=== PATIENT | male | born 1960 | race Caucasian/White ===

== ENCOUNTER 2016-12-07 14:07 | Emergency (ER) | payer MEDICARE, OTHER, MEDICAID ==
--- NOTE | 2016-12-07 14:53 | ER Document Report ---
ED Psych Disorder / Suicide - General Chief Complaint: Psych Problem Stated Complaint: PSYCH EVAL Time Seen by Provider: 12/07/16 14:27 Mode of Arrival: Medic Information source: Patient, Emergency Med Personnel Notes: This 56-year-old male patient was found walking in the [facility] and brought to the emergency room by EMS. He reported that he felt suicidal. His history is that he has been diagnosed schizophrenia since he was 16 years old, is not currently on medication. He normally takes Abilify, Remeron, Minipress, and does not know the doses. 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 He came to this area 3 days ago to meet with a girl he met on the internet who promised that she would never kick him out to the street. She kicked him out in the rain today. He states he is feeling very suicidal at this time. - Related Data Allergies/Adverse Reactions: No Known Allergies Allergy (Verified 12/07/16 14:21) Home Medications: Current Home Medications Benztropine Mesylate [Cogentin 1 mg Tablet] 2 tab PO BID 12/07/16 [History] Brimonidine Tartrate [Alphagan P] 1 drop OP Q8 12/07/16 [History] Cholecalciferol (Vitamin D3) [Vitamin D3] 1,000 unit PO DAILY 12/07/16 [History] Donepezil HCl [Aricept] 1 tab PO QHS 12/07/16 [History] Dorzolamide/Timolol/Pf [Cosopt Pf Eye Drops] 1 each OP TID 12/07/16 [History] Gabapentin 300 mg PO TID 12/07/16 [History] Latanoprost [Xalatan 0.005% Oph Soln 2.5 ml] 1 drop OP QHS 12/07/16 [History] Lisinopril [Prinivil 5 mg Tablet] 5 mg PO DAILY 12/07/16 [History] Metformin HCl [Glucophage] 500 mg PO BID 12/07/16 [History] Olanzapine [Zyprexa Zydis] 20 mg PO DAILY 12/07/16 [History] Sertraline HCl [Zoloft] 100 mg PO DAILY 12/07/16 [History] Tizanidine HCl [Zanaflex 4 Mg Tablet] 4 mg PO TID 12/07/16 [History] Trazodone HCl [Desyrel] 200 mg PO QHS 12/07/16 [History] Past Medical History - General Information source: Patient, Emergency Med Personnel - Social History Smoking Status: Current Every Day Smoker Cigarette use (# per day): Yes Chew tobacco use (# tins/day): No Smoking Education Provided: No Frequency of alcohol use: None Drug Abuse: None Occupation: Unemployed Lives with: Homeless Family History: Reviewed & Not Pertinent Patient has suicidal ideation: Yes Patient has homicidal ideation: No - Past Medical History Cardiac Medical History: Reports: Hx Hypertension Pulmonary Medical History: Reports: None EENT Medical History: Reports: None Neurological Medical History: Reports: None Endocrine Medical History: Reports: None Renal/ Medical History: Reports: None Malignancy Medical History: Reports None - Probably had a benign mass removed from his intracranial cavity by history. GI Medical History: Reports: None Musculoskeltal Medical History: Reports None Skin Medical History: Reports None Psychiatric Medical History: Reports: Hx Schizophrenia Past Surgical History: Reports: Hx Orthopedic Surgery - ORIF right forearm, Other - Brain surgery Review of Systems - Review of Systems Constitutional: No symptoms reported EENT: No symptoms reported Cardiovascular: No symptoms reported Respiratory: No symptoms reported Gastrointestinal: No symptoms reported Genitourinary: No symptoms reported Musculoskeletal: No symptoms reported Skin: No symptoms reported Neurological/Psychological: See HPI, Depression, Anxiety, Suicidal ideation Physical Exam - Vital signs Vitals: Temp Pulse Resp BP Pulse Ox 98.4 F 84 20 145/83 H 98 12/07/16 14:08 12/07/16 14:08 12/07/16 14:08 12/07/16 14:08 12/07/16 14:08 Interpretation: Normal - General General appearance: Alert, Anxious In distress: None Notes: Patient is standing in the room, he paces the floor using very short steps. - HEENT Head: Normocephalic, Atraumatic Eyes: Normal Pupils: PERRL Neck: Normal - Respiratory Respiratory status: No respiratory distress Breath sounds: Normal - Cardiovascular Rhythm: Regular Heart sounds: Normal auscultation Murmur: No - Abdominal Inspection: Normal Bowel sounds: Normal Tenderness: Nontender - Back Back: Normal - Extremities General upper extremity: Normal inspection General lower extremity: Normal inspection - Neurological Neuro grossly intact: Yes - Psychological Associated symptoms: Anxious, Restlessness - Skin Skin Temperature: Warm Skin Moisture: Dry Skin Color: Normal Course - Vital Signs Vital signs: Temp Pulse Resp BP Pulse Ox 98.4 F 84 20 145/83 H 98 12/07/16 14:08 12/07/16 14:08 12/07/16 14:08 12/07/16 14:08 12/07/16 14:08 - Laboratory Result Diagrams: 12/07/16 14:47 12/07/16 14:47 Laboratory results interpreted by me: 12/07/16 14:47 Glucose 134 H Salicylates < 1.0 L Acetaminophen < 10 L - EKG Interpretation by Nd EKG shows normal: Sinus rhythm, Finley, Intervals, QRS Complexes, ST-T Waves Rate: Normal - 58 Rhythm: NSR Discharge - Discharge Clinical Impression: Suicidal ideation, Homeless single person Schizophrenia Qualifiers: Schizophrenia type: unspecified Qualified Code(s): F20.9 - Schizophrenia, unspecified Condition: Stable Disposition: PSYCH HOSP/UNIT
[2016-12-07 15:07] LABS: ABSOLUTE BASOPHILS # (AUTO) 0.1 10^3/uL (0.0-0.2); ABSOLUTE EOSINOPHILS # (AUTO) 0.2 10^3/uL (0.0-0.6); ABSOLUTE LYMPHOCYTES (AUTO) 2.2 10^3/uL (0.5-4.7); ABSOLUTE MONOCYTES (AUTO) 0.8 10^3/uL (0.1-1.4); BASOPHILS % (AUTO) 0.7 % (0-2); EOSINOPHILS % (AUTO) 2.2 % (0-6); HEMATOCRIT 47.6 % (37.9-51.0); HGB HCT DIFFERENCE 0.4; LYMPHOCYTES % (AUTO) 20.8 % (13-45); MEAN CORPUSCULAR HEMOGLOBIN 31.4 pg (27.0-33.4); MEAN CORPUSCULAR HGB CONC 33.6 g/dL (32.0-36.0); MEAN CORPUSCULAR VOLUME 94 fl (80-97); MONOCYTES % (AUTO) 8.1 % (3-13); RED BLOOD COUNT 5.09 10^6/uL (4.35-5.55); RED CELL DISTRIBUTION WIDTH 13.1 % (11.5-14.0); SEGMENTED NEUTROPHILS % (AUTO) 68.2 % (42-78); WHITE BLOOD COUNT 10.3 10^3/uL (4.0-10.5)
[2016-12-07 15:31] LABS: ALANINE AMINOTRANSFERASE 43 U/L (21-72); ALBUMIN 3.9 g/dL (3.5-5.0); ALKALINE PHOSPHATASE 78 U/L (38-126); ANION GAP 11 (5-19); ASPARTATE AMINO TRANSFERASE 29 U/L (17-59); BILIRUBIN,DIRECT 0.3 mg/dL (0.0-0.4); BILIRUBIN,TOTAL 0.6 mg/dL (0.2-1.3); BLOOD UREA NITROGEN 8 mg/dL (7-20); CALCIUM 9.9 mg/dL (8.4-10.2); CARBON DIOXIDE 26 mmol/L (22-30); CHLORIDE 103 mmol/L (98-107); CREATININE RESULT 0.83 mg/dL (0.52-1.25); GLUCOSE 134 mg/dL (75-110); POTASSIUM 4.1 mmol/L (3.6-5.0); SODIUM 139.7 mmol/L (137-145)
[2016-12-07 15:32] LABS: ALCOHOL < 10 mg/dL (NONE DETECTED)
--- NOTE | 2016-12-07 16:20 | EKG REPORT ---
SEVERITY:- NORMAL ECG - SINUS RHYTHM : Confirmed by: Bee Gupta MD 07-Dec-2016 16:19:38
[2016-12-07 16:38] LABS: APPEARANCE,URINE CLEAR; BILIRUBIN,URINE NEGATIVE (NEGATIVE); GLUCOSE, URINE NEGATIVE (NEGATIVE); KETONES,URINE NEGATIVE (NEGATIVE); LEUKOCYTE ESTERASE,URINE NEGATIVE (NEGATIVE); NITRITE,URINE NEGATIVE (NEGATIVE); PROTEIN,URINE NEGATIVE (NEGATIVE); URINE SPECIFIC GRAVITY 1.002; UROBILINOGEN,URINE NEGATIVE mg/dL (<2.0)
[2016-12-07 16:57] LABS: URINE BARBITURATES SCREEN NEGATIVE; URINE METHADONE SCREEN NEGATIVE; URINE OPIATES LOW NEGATIVE; URINE PHENCYCLIDINE SCREEN NEGATIVE
[2016-12-07] MEDS: LEVETIRACETAM 500 MG TABLET PO SCH (22:05)
--- NOTE | 2016-12-08 07:13 | PSYCHOLOGICAL NOTE ---
Psych Note - Psych Note Psych Note: Ptt o ED via EMS with c/o suicidal ideation, found by EMS walking in rain on side of road. Pt reports he moved here 3 days ago from [place] to meet a girl he met karolyn, states she kicked him out in the rain today, pt tearful on arrival , states hx of schizophrenia and recent brain surgery. Patient disclosed that he had brain surgery 1 month ago in [facility] and should not even be out of bed. Patient states that he had a moved from his brain. Clinician notes patient does have scarring on the left side of his head. he continued disclosed that "everywhere I go they kicked me out." Scared. Patient continued disclosed that he has "nowhere to go and no reason to live." Patient states that he is not healthy. He continued disclosed that he used continued outpatient services however is new to the area. He continued disclosed that he is to take Abilify and Remeron. Patient again stated "no one wants to be around anymore." Patient repeated multiple times that he was scared. Patient identifies difficulty with falling asleep frequently. Patient is alert and orientated to person place time and circumstance. Mood is dysphoric with full affect. Patient endorses suicidal ideation denies homicidal ideation. Patient denies auditory visual hallucinations no delusions are noted patient is not demonstrating any behavior congruent to responding to internal stimuli. Thought process is disjointed. Conversational speech is halting and difficult to understand a patient's tearfulness. Eye contact was poor. Intellectual abilities appear to be low average range. Insight and concentration and attention judgment and impulse control. 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 Impression\\plan:Patient is recommended for mental health hold for overnight observation. It is unclear at this time the patient's history and diagnosis. Patient is able to disclose detailed information such as names and addresses however is fearful and demonstrating come confusion with orientation to timelines. Unable to obtain collaterals at this time; evaluation incomplete. Dr Estes was consulted on the care and management of this patient; attending physicain is in agreement with recommendations and disposition.
--- NOTE | 2016-12-08 09:05 | ER Document Report ---
Doctor's Note Notes: 12/08/16 09:18 As the rounding physician for our psychiatric patients, I have reviewed the chart, vitals, lab work. Patient has been examined and noted to be physically stable, notes secondary gains for his visit here. I am awaiting mental health in put.
[2016-12-08] MEDS: LEVETIRACETAM 500 MG TABLET PO SCH (10:17)
--- NOTE | 2016-12-08 10:52 | RADIOLOGY REPORT (SQ) ---
EXAM DESCRIPTION: CT HEAD WITHOUT COMPLETED DATE/TIME: 12/08/2016 10:31 am REASON FOR STUDY: recent surgery COMPARISON: None. TECHNIQUE: Axial images acquired through the brain without intravenous contrast. Images reviewed wi th bone, brain and subdural windows. Images stored on PACS. All CT scanners at this facility use dose modulation, iterative reconstruction, and/or weight based d osing when appropriate to reduce radiation dose to as low as reasonably achievable (ALARA). [facility]: Dose Right [facility]: CareDose [facility]: Dose Right [facility]: Teradose 4D [facility]: simplifyMD RADIATION DOSE: 64.61 mGy. LIMITATIONS: None. FINDINGS: VENTRICLES: Normal size and contour. CEREBRUM: No masses. No hemorrhage. No midline shift. Normal ramos/white matter differentiation. N o evidence for acute infarction. CEREBELLUM: No masses. No hemorrhage. No alteration of density. No evidence for acute infarction. EXTRAAXIAL SPACES: Postsurgical changes associated with recent left frontal craniotomy. No organize d gas fluid collection. ORBITS AND GLOBE: No intra- or extraconal masses. Normal contour of globe without masses. CALVARIUM: No fracture. PARANASAL SINUSES: No fluid or mucosal thickening. SOFT TISSUES: No mass or hematoma. OTHER: No other significant finding. IMPRESSION: Postsurgical changes left frontal craniotomy. No acute findings in the brain. TECHNICAL DOCUMENTATION: JOB ID: [id number] Quality ID # [id number]: Final reports with documentation of one or more dose reduction techniques (e.g., Au tomated exposure control, adjustment of the mA and/or kV according to patient size, use of iterative reconstruction technique) 2010 [employer]- All Rights Reserved
[2016-12-08 16:47] VITALS: BP 124/73
== END 2016-12-08 16:31 ==
LOC: ER 14:07
DX: F20.9 Schizophrenia, unspecified (principal); F32.9 Major depressive disorder, single episode, unspecified; F41.9 Anxiety disorder, unspecified; R45.851 Suicidal ideations; I10 Essential (primary) hypertension; F17.210 Nicotine dependence, cigarettes, uncomplicated; Z59.0 Homelessness; Z86.73 Personal history of transient ischemic attack (TIA), and cerebral infarction without residual deficits; Z98.890 Other specified postprocedural states
CPT/HCPCS: 93005; 99285; 36415; 80307 ×4; 85025; 80053; 81001; 70450; 93010; A9270 ×2

== ENCOUNTER 2016-12-20 17:58 | Emergency (ER) | payer MEDICARE, MEDICAID ==
[2016-12-20] MEDS ORDERED: ASPIRIN 81 MG TABLET, CHEWABLE PO ONE (18:12)
--- NOTE | 2016-12-20 18:31 | RADIOLOGY REPORT (SQ) ---
EXAM DESCRIPTION: CHEST SINGLE VIEW COMPLETED DATE/TIME: 12/20/2016 6:20 pm REASON FOR STUDY: cp COMPARISON: None. EXAM PARAMETERS: NUMBER OF VIEWS: One view. TECHNIQUE: Single frontal radiographic view of the chest acquired. RADIATION DOSE: NA LIMITATIONS: None. FINDINGS: LUNGS AND PLEURA: The lungs are hyperexpanded. There is no pulmonary infiltrate or pleura l effusion. MEDIASTINUM AND HILAR STRUCTURES: No masses. Contour normal. HEART AND VASCULAR STRUCTURES: Heart normal in size. Normal vasculature. BONES: No acute findings. HARDWARE: None in the chest. OTHER: No other significant finding. IMPRESSION: Chronic lung changes with no acute cardiopulmonary disease. TECHNICAL DOCUMENTATION: JOB ID: [id number]
--- NOTE | 2016-12-20 19:01 | ER Document Report ---
ED Cardiac - General Chief Complaint: Chest Pain Stated Complaint: CHEST PAIN Time Seen by Provider: 12/20/16 18:26 Notes: Patient is a 56-year-old male, prior history of CVA, hypertension who presents with 3-4 days of continuous chest pain. Does describe it as a continuous, stabbing pain across the left aspect of his chest. Denies radiation of the pain into the arms, jaw or back. Denies any associated shortness of breath, diaphoresis nausea or vomiting. States he has had similar episodes in the past but has never had an episode of ACS in the past. No history of DVT or pulmonary embolus. Patient is homeless and does not have a primary care physician. Nothing improves or worsens his pain. - Related Data Allergies/Adverse Reactions: No Known Allergies Allergy (Verified 12/07/16 14:21) Past Medical History - General Information source: Patient - Social History Smoking Status: Former Smoker Frequency of alcohol use: None Drug Abuse: None Lives with: Homeless Family History: Reviewed & Not Pertinent - Past Medical History Cardiac Medical History: Reports: Hx Hypertension Renal/ Medical History: Denies: Hx Peritoneal Dialysis Psychiatric Medical History: Reports: Hx Schizophrenia Past Surgical History: Reports: Hx Orthopedic Surgery - ORIF right forearm, Other - Brain surgery Review of Systems - Review of Systems Notes: Constitutional: Negative for fever. HENT: Negative for sore throat. Eyes: Negative for visual changes. Cardiovascular: Positive for chest pain. Respiratory: Negative for shortness of breath. Gastrointestinal: Negative for abdominal pain, vomiting or diarrhea. Genitourinary: Negative for dysuria. Musculoskeletal: Negative for back pain. Skin: Negative for rash. Neurological: Negative for headaches, weakness or numbness. 10 point ROS negative except as marked above and in HPI. Physical Exam - Vital signs Vitals: Temp Pulse Resp BP Pulse Ox 98.1 F 57 L 16 119/68 95 12/20/16 19:20 12/20/16 19:20 12/20/16 19:20 12/20/16 19:20 12/20/16 19:20 Interpretation: Bradycardic Notes: PHYSICAL EXAMINATION: GENERAL: Well-appearing, well-nourished and in no acute distress. HEAD: Atraumatic, normocephalic. EYES: Pupils equal round and reactive to light, extraocular movements intact, sclera anicteric, conjunctiva are normal. ENT: nares patent, oropharynx clear without exudates. Moist mucous membranes. NECK: Normal range of motion, supple without lymphadenopathy LUNGS: Breath sounds clear to auscultation bilaterally and equal. No wheezes rales or rhonchi. HEART: Regular rate and rhythm without murmurs ABDOMEN: Soft, nontender, normoactive bowel sounds. No guarding, no rebound. No masses appreciated. EXTREMITIES: Normal range of motion, no pitting or edema. No cyanosis. NEUROLOGICAL: No focal neurological deficits. Moves all extremities spontaneously and on command. PSYCH: Normal mood, normal affect. SKIN: Warm, Dry, normal turgor, no rashes or lesions noted. Course - Re-evaluation Re-evalutation: 12/20/16 19:06 Presentation of chest pain in an otherwise well appearing patient. Low clinical suspicion for ACS given clinical history, exam, EKG without ST elevations or depressions, and negative initial troponin. HEART score less than or equal to 3. PE also seems unlikely given clinical history, absence of tachycardia or dyspnea. Patient is PERC criteria negative. CXR without evidence of pneumothorax or pneumonia. No widened mediastinum. Aortic dissection also seems unlikely given history, symmetric pulses, CXR, and vitals. Patient's pain has been present and unchanged for the past 2 months so serial troponins seem to have a low utility at this time given that the initial troponin should be positive for an acute infarction has occurred today. HEART Score: History:0 EC Age:1 Risk Factors:2 Troponin:0 Total: 3 Chest pain in a patient without evidence of cardiac or other serious etiology on workup today. I discussed with patient that, based on their age, risk factors and emergency department testing today, the likelihood that their symptoms are related to a heart attack is very low (estimated risk of heart attack or over the next 30 days of less than 2%). The patient demonstrates decision making capacity and has verbalized an understanding of these risks to me. Based on this, the patient has chosen to follow-up as an outpatient. Usual chest pain return precautions reviewed. The patient states understanding and agreement with this plan. - Vital Signs Vital signs: Temp Pulse Resp BP Pulse Ox 98 F 53 L 12 122/84 96 12/20/16 21:06 12/20/16 21:06 12/20/16 21:06 12/20/16 21:06 12/20/16 21:06 - Laboratory Result Diagrams: 12/20/16 18:40 12/20/16 18:40 Laboratory results interpreted by me: 12/20/16 18:40 Chloride 109 H Glucose 113 H Total Protein 6.1 L Albumin 3.3 L - Diagnostic Test Radiology reviewed: Image reviewed, Reports reviewed Radiology results interpreted by me: 12/20/16 19:07 Chest x-ray: No acute infiltrate - EKG Interpretation by Me Additional EKG results interpreted by me: 12/20/16 19:08 Normal sinus rhythm. Rate 74. No ST elevations or depressions. QTC 395. Discharge - Discharge Clinical Impression: Chest pain Qualifiers: Chest pain type: unspecified Qualified Code(s): R07.9 - Chest pain, unspecified Condition: Good Disposition: HOME, SELF-CARE Additional Instructions: You were seen today for chest pain. The exact cause of your pain is unclear. However, based on your cardiac enzyme testing, chest x-ray, and EKG it does not appear that it is from an immediately life-threatening cause at this time. Although your testing here is normal is critical that you follow-up with your primary care physician for continued evaluation of this chest pain and possible stress testing. I recommended you see your physician within the next 24-48 hours to be evaluated for consideration of a stress test. Please return to emergency department immediately if you have worsening of your chest pain, shortness of breath, vomiting, become unable to exert yourself due to pain or difficulty breathing, you pass out, or have any pain that radiates into your arms, jaw, or back. Please also return if you have any additional symptoms that are concerning to you.
[2016-12-20 19:09] LABS: ABSOLUTE EOSINOPHILS # (AUTO) 0.1 10^3/uL (0.0-0.6); ABSOLUTE LYMPHOCYTES (AUTO) 2.5 10^3/uL (0.5-4.7); ABSOLUTE MONOCYTES (AUTO) 0.7 10^3/uL (0.1-1.4); ABSOLUTE NEUT (AUTO) 4.6 10^3/uL (1.7-8.2); BASOPHILS % (AUTO) 0.6 % (0-2); EOSINOPHILS % (AUTO) 1.7 % (0-6); HEMATOCRIT 44.6 % (37.9-51.0); HEMOGLOBIN 14.7 g/dL (13.5-17.0); HGB HCT DIFFERENCE -0.5; LYMPHOCYTES % (AUTO) 30.8 % (13-45); MEAN CORPUSCULAR HEMOGLOBIN 31.1 pg (27.0-33.4); MEAN CORPUSCULAR VOLUME 95 fl (80-97); MONOCYTES % (AUTO) 9.1 % (3-13); RED BLOOD COUNT 4.72 10^6/uL (4.35-5.55); RED CELL DISTRIBUTION WIDTH 13.5 % (11.5-14.0); SEGMENTED NEUTROPHILS % (AUTO) 57.8 % (42-78)
[2016-12-20 19:14] LABS: ALANINE AMINOTRANSFERASE 46 U/L (21-72); ALBUMIN 3.3 g/dL (3.5-5.0); ALKALINE PHOSPHATASE 57 U/L (38-126); ANION GAP 9 (5-19); ASPARTATE AMINO TRANSFERASE 30 U/L (17-59); BILIRUBIN,DIRECT 0.2 mg/dL (0.0-0.4); BILIRUBIN,TOTAL 0.3 mg/dL (0.2-1.3); BLOOD UREA NITROGEN 17 mg/dL (7-20); CALCIUM 8.6 mg/dL (8.4-10.2); CARBON DIOXIDE 25 mmol/L (22-30); CHLORIDE 109 mmol/L (98-107); CREATININE RESULT 0.79 mg/dL (0.52-1.25); GLUCOSE 113 mg/dL (75-110); POTASSIUM 3.7 mmol/L (3.6-5.0); SODIUM 142.6 mmol/L (137-145); TOTAL PROTEIN 6.1 g/dL (6.3-8.2)
[2016-12-20] MEDS ORDERED: MORPHINE SULFATE IR 15 MG TABLET PO ONE (19:42)
[2016-12-20 20:32] VITALS: BP 122/84
--- NOTE | 2016-12-21 08:44 | EKG REPORT ---
SEVERITY:- NORMAL ECG - SINUS RHYTHM : Confirmed by: Bee Gupta MD 21-Dec-2016 08:42:59
== END 2016-12-20 21:06 | disposition home or self-care (01) ==
LOC: ER 17:58
DX: R07.9 Chest pain, unspecified (principal); I10 Essential (primary) hypertension; Z86.73 Personal history of transient ischemic attack (TIA), and cerebral infarction without residual deficits; Z87.891 Personal history of nicotine dependence
CPT/HCPCS: 93005; 99285; 36415; 85025; 80053; 84484; 71010; 93010; A9270